=== PATIENT | female | born 1945 | race Caucasian/White ===

== ENCOUNTER 2016-09-21 11:22 | Observation (INO) | payer OTHER ==
--- NOTE | ~2016-09-21 | CR72 ---
[facility] A Service of [facility] & [facility] RADIOLOGY TEXT RESULTS PATIENT: TEJINDER MCKENZIE LOCATION: [facility] 560-01 : 43 UNIT #: [id number] AGE: [address]: Kevin Rodriguez MD SEX: F ORDER DR: [id number] [facility] [address] [facility]. [place], [place] [address] [id number] E MR#: [id number] Acc #: [id number] NAME: TEJINDER MCKENZIE : 1945 SEX: F STUDY DATE/TIME: 09/21/2016 11:45 UNIT: [facility] ROOM: STUDY DESCRIPTION: CR Chest Single View Portable Attending Physician: Asiya Samuels M.D. Ordering Physician: Asiya Samuels M.D. Primary Care Physician: Breanna Sanchez A.P.R.N. MEDICAL IMAGING REPORT This report is preliminary unless electronic signature is present EXAM Portable chest. HISTORY Shortness of air, dizziness. COMPARISON 08/18/2014 FINDINGS Portable view of the chest demonstrates moderate lung volumes and satisfactory technique. Mild prominence of the pulmonary interstitium, but no convincing evidence of CHF. Heart size within normal limits. Patient is post median sternotomy and valve replacement. Mild aortic atherosclerotic changes. Calcifications over the left shoulder may reflect calcific tendinitis. Mild left AC joint arthropathy. No effusions, infiltrates, or pneumothorax. Dictated by... Bandar Jones M.D. THIS IS AN ELECTRONICALLY VERIFIED REPORT Bandar Jones M.D. at 09/22/2016 10:25 AM LAURA/amanda TD: 09/21/2016 13:53 JOB #: [id number] MEDICAL IMAGING REPORT COPY
--- NOTE | ~2016-09-21 | A ---
[facility] Nutrition Therapy DATE: 09/22/16 Patient: INGRID MCKENZIE Physician: RUSH Address: [address] [place] [address] Room/Bed: [address] [place] [address], Zip: [place] [address] Admit Date: 09/21/16 Date of : 43 Height: 5 2 Weight: 140 63.6 NUTRITIONAL ASSESSMENT: REASON: 3 points malnutrition risk score for 15 lb weight loss Admitting Dx: 71 y/o female admitted with SOB, near syncope, hypertension PMH: Dementia, stroke, HLD, A-fib, CAD, DM, HTN, CHF, HLD, seizure d/o Anthropometrics: Ht: 62", Wt: 63.6 kg (140 lbs), BMI: 22 Labs: Glucose 252 Meds: Coumadin, Furosemide, Glucotrol, Novolog (low SSI) I/O & Bowel function: LBM 09/21 Skin Integrity: Redness R heel, scars noted, trace edema BLE Estimated Nutrition Needs: N/A Assessment: Chart reviewed, events noted. Patient with some confusion, note hx of dementia. CXR negative, ultrasound negative for DVT. DIL is patient's caregiver who is unavailable at this time, RD interviewed patient's son. She is on a regular diet. She is actually in the process of being discharged, so RD discussed patient's weight hx per [employer] with son, who is unsure of the patient's UBW. Past weight's range from 150-162 lbs, current weight is 140 lbs. Patient appears current stated weight, unsure of time frame of weight loss. Discussed ONS/Glucerna with the patient's son- suggested BID at home to prevent further unintentional weight loss and to encourage small, frequent meals. Son agreed. RD informed son patient's weight is still WNL. See recs below, follow-up not necessary. Dx: Unintentional weight loss r/t decreased oral intake, dementia, illness AEB 3 points malnutrition risk score. Intervention: Regular diet, Glucerna BID at home Monitoring, Evaluation and Goals: 1. Adequate oral intake > 50-75% of meals. 2. Prevent further unintentional weight loss. 3. Glucose WNL. Recommendations: [facility] Nutrition Therapy DATE: 09/22/16 Patient: INGRID MCKENZIE Physician: RUSH Address: [address] [place] [address] Room/Bed: [address] [place] [address], Zip: [place] [address] Admit Date: 09/21/16 Date of : 41 Height: 5 2 Weight: 140 63.6 Regular diet with Glucerna BID at home. Respectfully, Ingrid Hinton RD, LD [facility] cc: client file
--- NOTE | ~2016-09-21 | CR106 ---
[facility] A Service of [facility] RADIOLOGY TEXT RESULTS PATIENT: TEJINDER MCKENZIE LOCATION: [facility] 560-01 : 43 UNIT #: [id number] AGE: [address]: Kevin Rodriguez MD SEX: F ORDER DR: [id number] [facility] [address] [facility] [address] [facility]. [place], [place] [address] [id number] I MR#: [id number] Acc #: [id number] NAME: TEJINDER MCKENZIE : 1945 SEX: F STUDY DATE/TIME: 09/22/2016 11:56 UNIT: [facility] ROOM: [facility] STUDY DESCRIPTION: CR Femur 2 Views Lt Attending Physician: Kevin Rodriguez M.D. Ordering Physician: Ed Doctor [id number] [facility] Primary Care Physician: Breanna Sanchez A.P.R.N. MEDICAL IMAGING REPORT This report is preliminary unless electronic signature is present EXAM Left femur HISTORY Pain and left femur, onset today, no apparent trauma. FINDINGS Routine views of the left femur demonstrates no fracture or dislocation. Moderately advanced tricompartment osteoarthritis left knee but no sizeable effusion. Left hip joint unremarkable. Soft tissues appear normal. IMPRESSION Moderately advanced tricompartment osteoarthritis of the left knee but no definitive effusion. Femur unremarkable. STAT * RESULT Dictated by... Bandar Jones M.D. THIS IS AN ELECTRONICALLY VERIFIED REPORT Bandar Jones M.D. at 09/22/2016 5:08 PM LAURA/felicitas TD: 09/22/2016 13:34 JOB #: [id number] MEDICAL IMAGING REPORT [facility] A Service of [facility] & [facility] RADIOLOGY TEXT RESULTS PATIENT: TEJINDER MCKENZIE LOCATION: [facility] 560 : 43 UNIT #: [id number] AGE: [address]: Kevin Rodriguez MD SEX: F ORDER DR: OLIVIA
--- NOTE | ~2016-09-21 | US37 ---
[facility] A Service of [facility] & [facility] RADIOLOGY TEXT RESULTS PATIENT: TEJINDER MCKENZIE LOCATION: [facility] 560-01 : 43 UNIT #: [id number] AGE: [address]: Kevin Rodriguez MD SEX: F ORDER DR: [id number] [facility] [address] [place], [place] [address] [id number] I MR#: [id number] Acc #: [id number] NAME: TEJINDER MCKENZIE : 1945 SEX: F STUDY DATE/TIME: 09/21/2016 17:44 UNIT: [facility] ROOM: [facility] STUDY DESCRIPTION: US Carotid W/Doppler Bilateral Attending Physician: Kevin Rodriguez M.D. Ordering Physician: Kevin Rodriguez M.D. Primary Care Physician: Breanna Sanchez A.P.R.N. MEDICAL IMAGING REPORT This report is preliminary unless electronic signature is present EXAM Carotid duplex scan, 09/21/2016 HISTORY Dizziness. Shortness of breath. FINDINGS The right common carotid artery has minimal plaque. There is a small amount of dense plaque in the right carotid bulb which extends up into the proximal internal carotid artery. Peak systolic velocity in the mid right internal carotid artery is 74 cm/sec with an end-diastolic velocity of 18 cm/sec. The ICA/CCA ratio on the right is 0.80. Peak systolic velocity in the right external carotid artery is 74 cm/sec. The right vertebral artery is patent with antegrade flow. The left common carotid artery has a small amount of heterogeneous plaque. The left internal and external carotid arteries are patent with minimal plaque. Peak systolic velocity in the proximal left internal carotid artery is 85 cm/sec with an end-diastolic velocity of 12 cm/sec. The ICA/CCA ratio on the left is 1.07. Peak systolic velocity in the left external carotid artery is 73 cm/sec. The left vertebral artery is patent with antegrade flow. IMPRESSION Small amount of plaque, but no significant stenosis (less than 50%) in the internal and external carotid arteries bilaterally. Patent vertebral arteries bilaterally with antegrade flow. Dictated by... Amol Coleman M.D. [facility] A Service of [facility] RADIOLOGY TEXT RESULTS PATIENT: TEJINDER MCKENZIE LOCATION: [facility] 560-01 : 43 UNIT #: [id number] AGE: [address]: Kevin Rodriguez MD SEX: F ORDER DR: THIS IS AN ELECTRONICALLY VERIFIED REPORT Amol Coleman M.D. at 09/22/2016 7:32 AM CLAUDIA/becky TD: 09/21/2016 21:33 JOB #: [id number] MEDICAL IMAGING REPORT COPY
--- NOTE | ~2016-09-21 | HP ---
Unit #: [id number] #: [id number] Patient: TEJINDER MCKENZIE [id number] [facility]. [place], [place] [address] [id number] E MR#: [id number] NAME: TEJINDER MCKENZIE ROOM: Age: 71 Sex: F Admission Date: 09/21/2016 : 1945 Attending Physician: Asiya Samuels M.D. Primary Care Physician: Breanna Sanchez A.P.R.N. HISTORY AND PHYSICAL HISTORY OF PRESENT ILLNESS This is a 71-year-old white female who presents to [facility] ER via EMS on 09/21/16 with complaints of shortness of breath, near syncope and family reports she was cyanotic at the time they called EMS and she was found to be very hypertensive, systolic being greater than 160. According to the patient who is a poor historian due to some dementia, she has had some worsening shortness of breath for the last three days and did not lose consciousness but did feel like she was dizzy and did have a near syncopal episode. It occurred this morning around 9:30 after breakfast. She was getting ready to take a shower. She did not feel well and called for her uiufwmnp-bk-kzg, who was in the other room, who is her organizational psychologist, who noted her to be cyanotic. PAST MEDICAL HISTORY 1. She has a past medical history of mitral valve replacement with mechanical valve surgery in 2001. 2. A left heart cath done in July of 2001 showed normal coronaries. 3. She has a history of paroxysmal afib managed currently on Coumadin. 4. She had a stroke at the age of [age] years old with residual right-sided weakness. 5. Diabetes. 6. Hypertension. 7. Hyperlipidemia. 8. Valvular heart disease with severe TR. 9. Dementia. 10. Seizure disorder with tonic-clonic seizures. 11. PFO. 12. Also there is some history of some CHF. Details of this I do not have. DIAGNOSTIC STUDIES IMAGING: When she arrived to [facility] she had a chest x-ray which showed no evidence of CHF, mild aortic atherosclerotic changes and no active disease. She had a venous ultrasound to bilateral lower extremities which was negative for a DVT. CARDIOVASCULAR: She had an EKG on 09/21 which showed normal sinus rhythm at a rate of 66. Last echo she reports to me was done in April of 2016. I do not have Unit #: [id number] #: [id number] Patient: TEJINDER MCKENZIE that report but the office did send me over her 2D echo from July 2015 which showed her EF to be 60% to 65%. She is followed by Dr. Saunders in the [facility] office. ALLERGIES Atorvastatin, aspirin and Celebrex. SOCIAL HISTORY She lives with her son and klwjtyeg-xg-dth and her wevpnkgx-nb-agr is her organizational psychologist. She has advanced dementia and poor memory recall. She is a never smoker and denies alcohol or illicit drug use. She uses a quad cane to ambulate as her right side is immobile and she has ambulated this way since the age of 34 when she had her stroke. HOME MEDICATIONS Include: 1. Glipizide 5 mg daily. 2. Klor-Con 10 mEq b.i.d. 3. Levetiracetam 750 mg b.i.d. 4. Atenolol 25 mg daily. 5. Furosemide 40 mg daily. 6. Tylenol b.i.d. for arthritis. 7. Simvastatin 40 mg daily. 8. Coumadin Monday through Monday 3 mg and Monday and Monday 4 mg. FAMILY HISTORY Family history is noncontributory. REVIEW OF SYSTEMS She tells me she has been short of breath for the past three days. She had eaten breakfast during her near syncopal episode today. She reported she did not lose consciousness however she was very dizzy. She denies any chest pain for me but when Dr. Rodriguez interviewed her she did admit to some midsternal area chest pain with no radiation, no diaphoresis. She also admitted that she had palpitations. She denies any orthopnea, denies any cough, denies any sputum. PHYSICAL EXAMINATION VITAL SIGNS: Heart rate was 64. She is 98% on room air. Respirations 14. Blood pressure 123/60. GENERAL APPEARANCE: Generally she appears of normal weight and well developed, well nourished. LUNGS: Her lungs were clear to auscultate bilaterally. CARDIOVASCULAR: She has a regular rate and rhythm with S1, S2 noted with a positive brisk click. ABDOMEN: Mildly tender but soft with positive bowel sounds. EXTREMITIES: Actually tender to palpate bilaterally. Her left lower extremity is much bigger than her right lower extremity however there is no pitting edema. NEUROLOGIC: Neurally she is oriented to person and place. She does have some slurred speech and she is pleasant and cooperative. She has some right-sided hemiplegia. HEENT: Pupils are equal, round and reactive to light and accommodation, with extraocular movements intact. Head is normocephalic/atraumatic. SKIN: Skin is warm, pink and dry with no rashes, ulcers or wounds. DIAGNOSTIC STUDIES IMAGING: As noted above. Unit #: [id number] #: [id number] Patient: TEJINDER MCKENZIE CARDIOVASCULAR: As noted above. LABORATORY: Studies include sodium 136, potassium 4.3, chloride 101, CO2 26, BUN 15, creatinine 0.8, glucose 252, troponin was less than 0.05, BNP was 108, INR is 2.5, hemoglobin 14.3, hematocrit 41.7, WBCs 5.9, platelet count 116. IMPRESSION 1. Palpitations versus some paroxysmal atrial fibrillation. History of paroxysmal atrial fibrillation managed on Coumadin. 2. Status post mechanical mitral valve replacement in 2001. 3. History of atrial septal defect closure in 1978. 4. Diabetes. 5. Valvular heart disease. 6. History of cerebrovascular accident. 7. Hyperlipidemia. 8. Hypertension. 9. Dementia. 10. Near syncope. PLAN Cardiology will observe her, check a D-dimer and please have results called. Will repeat her 2D echo. Apparently she had a 2D echo last in the office back in April of 2016. I did not have those records. We will try to obtain those. Oquuow-hrws-ucbe Holter monitor and carotid Dopplers, orthostatic blood pressure and a Lexiscan Cardiolite in the morning. We will keep her n.p.o. and repeat troponin level. Further plan per results of these tests. Dictated by Susana Molina APRN for Juan Mak TD: 09/21/2016 17:23 JOB #: [id number] HISTORY AND PHYSICAL X X HISTORY AND PHYSICAL
--- NOTE | ~2016-09-21 | ST ---
Unit #: [id number] #: [id number] Patient: TEJINDER MCKENZIE [id number] [address] [place], [place] [address] [id number] I MR#: [id number] NAME: TEJINDER MCKENZIE : 1945 SEX: F STUDY DATE/TIME: 09/22/2016 UNIT: C5B ROOM: [facility] STUDY DESCRIPTION: Cardiac stress test. Attending Physician: Kevin Rodriguez M.D. Primary Care Physician: Breanna Sanchez A.P.R.N. CARDIOLOGY REPORT EXAM Cardiac stress test. REASON FOR STUDY Shortness of breath and chest pain. PROCEDURE Resting heart rate was 79 beats per minute. Resting blood pressure was 131/67. Baseline EKG was normal sinus rhythm. A total of 0.4 mg of Lexiscan was injected per protocol, followed by Cardiolite. The patient's symptoms included 0. She had no arrhythmias during the test. The test was stopped due to protocol completion. Resting heart rate 79 and resting blood pressure 131/67. During Lexiscan her heart rate increased to 113 beats per minute and her blood pressure increased to 138/81. Maximum heart rate was 113 beats per minute. In recovery her heart rate was 96 and her blood pressure was 136/76. She had no symptoms during the test and no arrhythmias noted. Please correlate with Cardiolite imaging. Dictated by... Susana Molina APRN for Juan Mak TD: 09/22/2016 11:58 JOB #: [id number] CARDIOLOGY REPORT X CARDIOLOGY REPORT
--- NOTE | ~2016-09-21 | CT16 ---
[facility] A Service of [facility] & [facility] RADIOLOGY TEXT RESULTS PATIENT: TEJINDER MCKENZIE LOCATION: [facility] 560-01 : 43 UNIT #: [id number] AGE: [address]: Kevin Rodriguez MD SEX: F ORDER DR: [id number] [facility] [address] [place], [place] [address] [id number] E MR#: [id number] Acc #: [id number] NAME: TEJINDER MCKENZIE : 1945 SEX: F STUDY DATE/TIME: 09/21/2016 14:10 UNIT: [facility] ROOM: STUDY DESCRIPTION: CT Angio Chest for PE Attending Physician: Asiya Samuels M.D. Ordering Physician: Asiya Samuels M.D. Primary Care Physician: Breanna Sanchez A.P.R.N. MEDICAL IMAGING REPORT This report is preliminary unless electronic signature is present EXAM CT angiogram of the chest for pulmonary embolism, 09/21/2016, 1410 hours. HISTORY 71-year-old woman with history of CVA, dementia for evaluation of shortness of air today. Possible pulmonary embolism. COMPARISON CT chest PE protocol, 08/18/2014. TECHNIQUE Dynamic helical CT angiographic images were obtained from the thoracic inlet through the upper abdomen with contrast. 3-D sagittal and coronal reconstructions were performed. Contrast was Isovue-370 80 mL IV. Total exam DLP 343 mGy-cm. This CT exam was performed with one or more of the following radiation dose reduction techniques: automatic exposure control, adjustment of mA and/or kV according to patient size, and iterative reconstruction. FINDINGS Images through the thoracic inlet are normal. Images through the chest demonstrate diagnostic quality opacification of the pulmonary arteries which are normal in caliber. There are no filling defects to suggest the presence of pulmonary emboli. There is partial filling of the lower lobe pulmonary veins. The aorta is mildly ectatic without dissection. Ascending aorta is stable at 3.4 cm. Cardiac chambers and pericardium are normal. There is a moderate sized hiatal hernia without change. There is no pathologic adenopathy. Lung window images demonstrate mild dependent vascular crowding and atelectasis. There is no evidence of pneumonia, edema, or pneumothorax. [facility]. [facility] A Service of [facility] RADIOLOGY TEXT RESULTS PATIENT: TEJINDER MCKENZIE LOCATION: [facility] 560-01 : 43 UNIT #: [id number] AGE: [address]: Kevin Rodriguez MD SEX: F ORDER DR: Limited views through the upper abdomen are negative. IMPRESSION 1. No evidence of pulmonary embolism. The aorta is within normal limits. 2. There is basilar vascular crowding and minimal bibasilar atelectasis but no definite evidence of pneumonia, edema, or pleural effusion. 3. Very limited views through the upper abdomen demonstrate a stable moderate hiatal hernia. Dictated by... Tamara Hair M.D. THIS IS AN ELECTRONICALLY VERIFIED REPORT Tamara Hair M.D. at 09/22/2016 9:23 AM MAYRA/amanda TD: 09/21/2016 16:17 JOB #: [id number] MEDICAL IMAGING REPORT COPY
--- NOTE | ~2016-09-21 | US85 ---
[facility] A Service of [facility] RADIOLOGY TEXT RESULTS PATIENT: TEJINDER MCKENZIE LOCATION: [facility] : 43 UNIT #: [id number] AGE: [address]: Asiya Samuels MD SEX: F ORDER DR: [id number] [facility] [address] [facility] [place] [facility]. [place], [place] [address] [id number] E MR#: [id number] Acc #: [id number] NAME: TEJINDER MCKENZIE : 1945 SEX: F STUDY DATE/TIME: 09/21/2016 12:08 UNIT: [facility] ROOM: STUDY DESCRIPTION: LE Veins Unilat or Ltd Stdy Attending Physician: Asiya Samuels M.D. Ordering Physician: Asiya Samuels M.D. Primary Care Physician: Breanna Sanchez A.P.R.N. MEDICAL IMAGING REPORT This report is preliminary unless electronic signature is present EXAM Left lower extremity duplex Doppler venous ultrasound COMPARISON January 15, 2010 and November 09, 2009. INDICATIONS 71-year-old female with left lower extremity swelling and dyspnea for 1 day. Currently on Warfarin. TECHNIQUE Venous ultrasound examination of the left lower extremity was performed using grayscale, spectral Doppler and color flow Doppler imaging. FINDINGS The examination is negative. There is no evidence of left lower extremity deep venous thrombus from the groin to the lower calf. Visualized greater saphenous vein is also patent. IMPRESSION Negative examination. No evidence of left lower extremity deep venous thrombosis. Dictated by... Manfred Vickers M.D. THIS IS AN ELECTRONICALLY VERIFIED REPORT Manfred Vickers M.D. at 09/21/2016 2:20 PM RG/donna TD: 09/21/2016 14:18 JOB #: [id number] [facility] A Service of [facility] RADIOLOGY TEXT RESULTS PATIENT: TEJINDER MCKENZIE LOCATION: [facility] : 43 UNIT #: [id number] AGE: [address]: Asiya Samuels MD SEX: F ORDER DR: MEDICAL IMAGING REPORT COPY
--- NOTE | ~2016-09-21 | HM ---
Unit #: [id number] #: [id number] Patient: TEJINDER MCKENZIE [id number] [address] [address] [id number] I MR#: [id number] NAME: TEJINDER MCKENZIE : 1945 SEX: F STUDY DATE/TIME: 09/21/2016 UNIT: C5B ROOM: [facility] STUDY DESCRIPTION: Holter Monitor Attending Physician: Kevin Rodriguez M.D. Primary Care Physician: Breanna Sanchez A.P.R.N. CARDIOLOGY REPORT EXAM 24 Hour Holter Monitor DATE APPLIED 09/21/2016 DATE SCANNED 09/26/[address] Rhett Rodriguez READ BY Dr. Carlos Sheriff REASON FOR TEST Syncope. FINDINGS Underlying rhythm is normal sinus rhythm with an average heart rate of 76 beats, minimum heart rate of 57 beats per minute, and a maximum heart rate of 123 beats per minute. The minimum heart rate of 57 beats per minute is noted at 7:01 a.m. The maximum heart rate of 123 beats per minute is noted at 9:26 a.m. The patient had a 1.14 second pause noted at 8:43 p.m. The patient had 22 single multifocal premature ventricular complexes noted. The patient had 23 single premature atrial complexes noted. The patient had a three beat run of paroxysmal supraventricular tachycardia at a heart rate of 132 beats per minute noted at 1:59 p.m. The patient did not record any symptoms. CONCLUSION 1. Underlying rhythm is normal sinus rhythm with an average heart rate of 76 beats per minute, minimum heart rate of 57 beats per minute and a maximum heart of 123 beats per minute. 2. No sustained atrial or ventricular arrhythmias noted. 3. No significant pauses noted. 4. Rare single multifocal premature ventricular complex and premature atrial complexes noted. 5. The patient had a three beat run of paroxysmal supraventricular tachycardia at a heart rate of 132 beats per minute. 6. The patient did not record any symptoms. Unit #: [id number] #: [id number] Patient: TEJINDER MCKENZIE Dictated by..Juan Jackson TD: 10/04/2016 06:57 JOB #: [id number] CARDIOLOGY REPORT X Za Sheriff MD <ELECTRONICALLY SIGNED> 02/18/17 1429 HOLTER MONITOR REPORT
--- NOTE | ~2016-09-21 | TH ---
Unit #: [id number] #: [id number] Patient: TEJINDER MCKENZIE [id number] [address] [address] [id number] MR#: [id number] NAME: TEJINDER MCKENZIE : 1945 SEX: F STUDY DATE/TIME: UNIT: C5B ROOM: [facility] STUDY DESCRIPTION: Nuclear Study Attending Physician: Kevin Rodriguez M.D. Primary Care Physician: Breanna Sanchez A.P.R.N. CARDIOLOGY REPORT EXAM Lexiscan Cardiolite Stress Test - Nuclear Portion PROCEDURE Using technetium 99m labeled Cardiolite, rest and stress SPECT images were obtained. Multiple SPECT images were obtained in various views including horizontal and vertical long axis and short axis views of the left ventricle. Images were obtained by gated SPECT method. The patient was administered 11.39 mCi of Cardiolite at rest. The patient was administered 32.6 mCi of Cardiolite after Lexiscan infusion was completed. On the stress images, there is normal perfusion noted. The rest images show normal perfusion. Comparing rest and stress images, there is no stress-induced ischemia noted. The left ventricular ejection fraction is calculated to be 88%. There is no focal wall motion abnormality seen. The left ventricular size is small. CONCLUSION 1. No stress-induced ischemia noted. 2. The left ventricular ejection fraction is calculated to be 88%. 3. There is no focal wall motion abnormality seen. 4. The left ventricular size is very small. 5. Normal Lexiscan Cardiolite stress test. Dictated by... Juan Parada TD: 09/22/2016 11:33 JOB #: [id number] Unit #: [id number] #: [id number] Patient: TEJINDER MCKENZIE CARDIOLOGY REPORT X Za Sheriff MD <ELECTRONICALLY SIGNED> 02/18/17 1428 CARDIOLOGY REPORT
--- NOTE | ~2016-09-21 | EKG ---
PATIENT: TEJINDER MCKENZIE UNIT #: [id number] Ventricular Rate: 66 BPM Atrial Rate: 66 BPM P-R Interval: 202 ms QRS Duration: 74 ms Q-T Interval: 436 ms QTC Calculation(Bezet): 457 ms P [place]: 57 degrees Calculated R [place]: -8 degrees Calculated T [place]: 38 degrees Diagnosis Line: Normal sinus rhythm Diagnosis Line: Normal ECG Diagnosis Line: When compared with ECG of 18-AUG-2014 11:14, Diagnosis Line: No significant change was found Diagnosis Line: Confirmed by ABHIJIT SORTO MD ([id number]) on 09/21/2016 Diagnosis Line: 6:21:06 PM INTERPRETING MD: MACARIO MORALES
[~2016-09-21 11:22] MED LIST: ACULAR10 ML; ATENOLOL PO; BUSPIRONE HCL15 MG; COUMADIN PO; ENABLEX15 MG PO; GLIPIZIDE5 MG/BOTT1 PO; GLUCOTROL XL PO; KCL PO; KEFLEX500 MG PO; KEPPRA750 MG PO; KLOR-CON PO; LIPITOR PO; PANTOPRAZOLE SO40 MG PO; PHENERGAN PO; PRED FORTE; PREDNISONE PO; PROTONIX20 MG PO; ROPINIROLE HCL1 MG PO; SERTRALINE HCL25 MG PO; VESICARE5 MG PO; ZOCOR PO
[2016-09-21 11:34] LABS: BASOPHIL# 0.1 X10e3 (0-0.3); BASOPHIL% 0.9 % (0-2.5); EOSINOPHIL# 0.1 X10e3 (0-0.7); EOSINOPHIL% 1.1 % (0.0-7.0); HEMATOCRIT 41.7 % (35.0-45.0); HEMOGLOBIN 14.3 gm/dL (12.0-16.0); LYMPHOCYTE# 1.6 X10e3 (1.0-3.5); LYMPHOCYTE% 26.4 % (17.0-45.0); MEAN CELL VOLUME 89.4 FL (83-96); MEAN CORPUSCULAR HEMOGLOBIN 30.6 PG (28-34); MEAN CORPUSCULAR HGB CONC 34.2 g/dL (30-36); MEAN PLATELET VOLUME 9.4 FL (6.5-11.5); MONOCYTE# 0.4 X10e3 (0-1.0); MONOCYTE% 7.5 % (3.0-12.0); NEUTROPHIL# 3.8 X10e3 (1.5-7.1); NEUTROPHIL% 64.1 % (40-75); PLATELET COUNT 116 X10e3 (140-420); RED BLOOD COUNT 4.67 X10e (3.90-5.30); RED CELL DISTRIBUTION WIDTH 13.2 % (11.0-15.5); WHITE BLOOD COUNT 5.9 X10e3 (4.0-10.5)
[2016-09-21 11:38] LABS: DIFF IND NO
[2016-09-21 11:48] LABS: INR 2.5; PARTIAL THROMBOPLASTIN TIME 38.4 SECONDS (23.5-31.3); PROTHROMBIN TIME (PATIENT) 26.7 SECONDS (9.6-11.5)
[2016-09-21] MEDS ORDERED: GLIPIZIDE5 MG/BOTT1 PO (11:54)
[2016-09-21] MEDS ORDERED: KCL PO (11:54)
[2016-09-21] MEDS ORDERED: TENORMIN25 MG PO (11:55)
[2016-09-21] MEDS ORDERED: KEPPRA750 M1 PO (11:55)
[2016-09-21] MEDS ORDERED: FUROSEMIDE40 MG PO (11:56)
[2016-09-21] MEDS ORDERED: TYL325 PO (11:57)
[2016-09-21] MEDS ORDERED: SIMVASTATIN40 MG PO (11:57)
[2016-09-21] MEDS ORDERED: COUMADIN3 MG PO (11:58)
[2016-09-21] MEDS ORDERED: WARFARIN SODIUM4 M1 PO (11:59)
[2016-09-21 12:01] LABS: POC - CKMB <1.0 ng/mL (0.0-7.9); POC - TROPONIN <0.05 ng/mL (<=0.05)
[2016-09-21 12:03] LABS: ALBUMIN SERUM 4.2 g/dL (3.5-5.0); ALKALINE PHOSPHATASE 63 U/L (32-92); ALT (SGPT) 18 U/L (10-40); AST (SGOT) 27 U/L (10-42); BILIRUBIN, DIRECT 0.1 mg/dL (0.0-0.2); BILIRUBIN,INDIRECT 0.9 mg/dL (0.0-0.9); BLOOD UREA NITROGEN 15 mg/dL (9-23); BUN/CREATININE RATIO 18.75; CALCIUM SERUM 9.5 mg/dL (8.4-10.2); CARBON DIOXIDE 26 mmol/L (22-31); CHLORIDE 101 mmol/L (100-111); CREATININE SERUM 0.8 mg/dL (0.6-1.4); GLOM FILT RATE Estimated ABOVE60 mL/min (>60); GLUCOSE FASTING 252 mg/dL (70-110); POTASSIUM 4.3 mmol/L (3.5-5.1); PROTEIN TOTAL SERUM 7.1 g/dL (6.0-8.3); SODIUM 136 mmol/L (135-145)
[2016-09-21 13:20] LABS: POC - CKMB <1.0 ng/mL (0.0-7.9); POC - TROPONIN <0.05 ng/mL (<=0.05)
[2016-09-21 13:59] LABS: URINE SOURCE CLEAN CATCH
[2016-09-21 14:02] LABS: URINE APPEARANCE CLEAR; URINE BILIRUBIN NEG (NEG); URINE BLOOD NEG (NEG); URINE COLOR YELLOW; URINE GLUCOSE NEG (NEG); URINE KETONE NEG (NEG); URINE LEUKOCYTE ESTERASE NEG (NEG); URINE NITRATE NEG (NEG); URINE PROTEIN NEG (NEG); URINE SPECIFIC GRAVITY 1.008 (1.003-1.035); URINE UROBILINOGEN 0.2 MG/DL (NEG)
[2016-09-21 14:09] LABS: CULTURE INDICATED? NO
[2016-09-22 04:15] LABS: INR 2.3; PARTIAL THROMBOPLASTIN TIME 38.3 SECONDS (23.5-31.3)
== END 2016-09-22 15:52 | disposition home or self-care (01) ==
LOC: CED 11:22 → CEDOF 15:45 → C5B 18:14
PROVIDERS: Emergency Medicine; Internal Medicine Cardiovascular Disease
DX: R00.2 Palpitations (principal); I48.0 Paroxysmal atrial fibrillation; Z79.01 Long term (current) use of anticoagulants; Z95.2 Presence of prosthetic heart valve; Z87.74 Personal history of (corrected) congenital malformations of heart and circulatory system; Z86.73 Personal history of transient ischemic attack (TIA), and cerebral infarction without residual deficits; E11.9 Type 2 diabetes mellitus without complications; E78.5 Hyperlipidemia, unspecified; F03.90 Unspecified dementia, unspecified severity, without behavioral disturbance, psychotic disturbance, mood disturbance, and anxiety; I11.0 Hypertensive heart disease with heart failure; I50.32 Chronic diastolic (congestive) heart failure; J96.01 Acute respiratory failure with hypoxia; R55 Syncope and collapse; K44.9 Diaphragmatic hernia without obstruction or gangrene; Z88.6 Allergy status to analgesic agent; Z88.1 Allergy status to other antibiotic agents; Z82.49 Family history of ischemic heart disease and other diseases of the circulatory system
CPT/HCPCS: 36415; 71010; 71275; 73552; 78452; 80048; 80076; 81003; 82553; 82947; 83880; 84484; 85025; 85379; 85610; 85730; 93005; 93017; 93225; 93226; 93880; 93971; 99285; A9500; G0378; J1815; J2785; Q9967

== ENCOUNTER 2017-03-08 19:47 | Emergency (ER) | payer OTHER ==
[~2017-03-08] VITALS: Ht 157.5 cm; Wt 66.7 kg
[~2017-03-08 19:47] MED LIST changes: +COUMADIN3 MG PO; +FUROSEMIDE40 MG PO; +KEPPRA750 M1 PO; +SIMVASTATIN40 MG PO; +TENORMIN25 MG PO; +TYL325 PO; +WARFARIN SODIUM4 M1 PO
== END 2017-03-09 01:25 | disposition home or self-care (01) ==
LOC: CED 19:47
DX: H92.21 Otorrhagia, right ear (principal); Z79.01 Long term (current) use of anticoagulants; Z88.6 Allergy status to analgesic agent; Z88.1 Allergy status to other antibiotic agents; Z88.8 Allergy status to other drugs, medicaments and biological substances; Z79.899 Other long term (current) drug therapy
CPT/HCPCS: 99282